=== PATIENT | male | born 2005 | race Caucasian/White ===

== ENCOUNTER 2024-06-24 08:23 | Emergency (ER) | payer OTHER, BC, SELFPAY ==
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
--- NOTE | 2024-06-24 08:35 | PC.NURSE ---
Pt. denies c-spine tenderness on palpation.
[2024-06-24 08:41] VITALS: BP 139/57; PULSE 56; RESP 16; TEMP 36.2; O2SAT 100
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
--- OUTSIDE RECORDS SUMMARY | 2024-06-24 10:13 | XMS_ITS | Referral Summary ---
Author Organization [facility] Address [address] [place] [id number] Care Team Providers Care Air Pollution Inspector Name Role Phone No, Physician Primary Care Provider [phone] Allergies No known active allergies Medications cyclobenzaprine (FLEXERIL) 10 mg tabletIndication s:Muscle Spasm Take 1 tablet (10 mg total) by mouth every 8 (eight) hours as needed for muscle spasms for up to 4 days 12 tablet 02/26/2023 Active Social History Tobacco Use Types Packs/Day Years Used Date Smoking Tobacco: Never Smokeless Tobacco: Never Alcohol Use Standard Drinks/Week Comments No 0 (1 standard drink = 0.6 oz pur e alcohol) Personal Safety Answer Date Recorded Getting School Help Needed Not on file 04/30 Sex and Gender Information Value Date Recorded Sex Assigned at Not on file 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 Gender Identity Not on file Sexual Orientation Not on file Last Filed Vital Signs Vital Sign Reading Time Taken Comments Blood Pressure 99/64 02/26/2023 12:00 AM CDT Pulse 57 02/26/2023 12:30 AM CDT Temperature 36.9 C (98.4 F) 02/25/2023 8:24 PM CDT Respiratory Rate 18 02/25/2023 9:04 PM CDT Oxygen Saturation 98% 02/26/2023 12:30 AM CDT Inhaled Oxygen Concentration - - Weight 86.2 kg (190 lb) 02/25/2023 5:53 PM CDT Height 167.6 cm (5' 6 ) 02/25/2023 5:53 PM CDT Body Mass Index 30.67 02/25/2023 5:53 PM CDT Body Mass Index Percentile 95.80% 02/25/2023 5:5 3 PM CDT Growth Chart: [facility] (Boys, 2-2 0 Years) Plan of Treatment Not on file Insurance [employer] Care Teams Air Pollution Inspector Relationship Specialty Start Date End Date No, Physician PCP - General 06/08/17
--- OUTSIDE RECORDS SUMMARY | 2024-06-24 10:13 | XMS_ITS | Patient Health Summary ---
Author Organization [facility] Address [address] [place] [address] Care Team Providers Care Dual Hose Cementer Name Role Phone Unavailable Primary Care Provider Unavailabl e Note from [facility],non-owned Affiliates and Associated Physician Practices is amultiple site organization consisting of ambulatory clinics and hospital sitesin [place], [place], [place] and [place]. This disclosure is being madepursuant to the Care Everywhere program and may not contain all information available regarding this patient. Last updated 18.[facility] Allergies No known active allergies Medications * Be aware that medications may not be up to date on this document. Alwaysverify current medications with the patient. * albuterol HFA (PROVENTIL;VENTOLIN;PROAIR) 108 (90 Base) MCG/ACT inhaler Inhale 2 puffs by mouth every 4 hours as needed for Shortness of Breath or Wheezing * acetaminophen (TYLENOL) 325 MG tablet(Started 04/02/2020) Take 2 tablets by mouth every 6 hours as needed Maximum allowable Acetaminophen amount = 4 Grams (4000 mg) / 24 hours. * ibuprofen (MOTRIN) 400 MG tablet(Started 04/02/2020) Take 1 tablet by mouth every 6 hours as needed for Pain Active Problems Problem Noted Date Diagnosed Date Tonsillar abscess 04/01/2020 Immunizations * INFLUENZA VACCINE, QUADR. (FLUZONE; FLULAVAL; FLUARIX; AFLURIA QUADRIVALENT; 6MO+), 0.5 ML (IIV4)(Given 04/02/2020) Social History Tobacco Use Types Packs/Day Years Used Date Smoking Tobacco: Never Smokeless Tobacco: Never Alcohol Use Standard Drinks/Week Comments Never 0 (1 standard drink = 0.6 oz pur e alcohol) AUDIT-C Answer Date Recorded Q1: How often do you have a drink containing alc ohol? Never 04/01/2020 Average Number of Drinks Not on file 020 Frequency of Binge Drinking Not on file 03/05 Sex and Gender Information Value Date Recorded Sex Assigned at Not on file Gender Identity Not on file Sexual Orientation Not on file Last Filed Vital Signs Vital Sign Reading Time Taken Comments Blood Pressure 138/66 04/02/2020 3:39 PM STORE ADMINISTRATOR Pulse 80 04/02/2020 3:39 PM STORE ADMINISTRATOR Temperature 37.6 C (99.7 F) 04/02/2020 3:39 PM STORE ADMINISTRATOR Respiratory Rate 20 04/02/2020 3:39 PM STORE ADMINISTRATOR Oxygen Saturation 96% 04/02/2020 3:39 PM STORE ADMINISTRATOR Inhaled Oxygen Concentration - - Weight 75.1 kg (165 lb 9.1 oz) 04/01/20 20 11:45 PM STORE ADMINISTRATOR Height 165.2 cm (5' 5.04 ) 04/01/2020 1 1:45 PM STORE ADMINISTRATOR Body Mass Index 27.52 04/01/2020 11:45 PM STORE ADMINISTRATOR Body Mass Index Percentile 95.19% 04/01 11:45 PM STORE ADMINISTRATOR Growth Chart: CDC (Boys, 2-2 0 Years) Procedures * RESPIRATORY PANEL WITH SARS-COV-2 BY PCR (STL)(Performed 04/02/2020) * DIFFERENTIAL MANUAL(Performed 04/02/2020) * CBC W AUTO DIFFERENTIAL(Performed 04/02/2020) * VI-CASPER VIRUS ANTIBODY PANEL(Performed 04/02/2020) Results * RESPIRATORY PANEL WITH SARS-COV-2 BY PCR (STL) (04/02/2020 9:53 AM STORE ADMINISTRATOR) Adenovirus PCR Not detected Not detected 04/02/2020 2:50 PM STORE ADMINISTRATOR [facility] Coronavirus 229E PCR Not detected Not detected 04/02/2020 2:50 PM STORE ADMINISTRATOR [facility] Coronavirus HKU1 PCR Not detected Not detected 04/02/2020 2:50 PM STORE ADMINISTRATOR [facility] Coronavirus NL63 PCR Not detected Not detected 04/02/2020 2:50 PM STORE ADMINISTRATOR [facility] Coronavirus OC43 PCR Not detected Not detected 04/02/2020 2:50 PM STORE ADMINISTRATOR [facility] COVID-19 PCR Not detected Not detected 04/02/2020 2:50 PM [facility] Human Metapneumovirus PCR Not detected Not detected 04/02/2020 2:50 PM [facility] Human Rhinovirus/Enterov irus PCR Not detected Not detected 04/02/2020 2:50 PM [facility] Influenza A PCR Not detected Not detected 04/02/2020 2:50 PM [facility] Influenza B PCR Not detected Not detected 04/02/2020 2:50 PM [facility] Parainfluenza Virus 1 PCR Not detected Not detected 04/02/2020 2:50 PM [facility] Parainfluenza Virus 2 PCR Not detected Not detected 04/02/2020 2:50 PM [facility] Parainfluenza Virus 3 PCR Not detected Not detected 04/02/2020 2:50 PM [facility] Parainfluenza Virus 4 PCR Not detected Not detected 04/02/2020 2:50 PM [facility] Respiratory Syncytial Virus PCR Not detected Not detected 04/02/2020 2:50 PM [facility] Bordetella parapertussis PCR Not detected Not detected 04/02/2020 2:50 PM [facility] Bordetella pertussis PCR Not detected Not detected 04/02/2020 2:50 PM [facility] Chlamydia pneumoniae PCR Not detected Not detected 04/02/2020 2:50 PM [facility] Mycoplasma pneumoniae PCR Not detected Not detected 04/02/2020 2:50 PM [facility] Microbiology SPECIMEN FROM NASOPHARYNGEAL STRUCTURE / Unknown Collection / Unknown 04/02/2020 9:53 AM STORE ADMINISTRATOR 04/02/2020 10:01 AM STORE ADMINISTRATOR [facility]CRO[facility] - 04/02/2020 2:50 PM STORE ADMINISTRATOR This nucleic acid amplification assay performance was validated by [facility]. This test has been authorized by the Food and Drug administration (FDA)under an Emergency Use Authorization (EUA). This test has been validated in accordance with the FDA's guidance document Policy for Diagnostic Testing in Laboratories Certified to perform High Complexity Testing under CLIA prior to Emergency Use Authorization for Coronavirus Disease-2019 during the Public Health Emergency issued on July 02, 2019. FDA independent review of this validation is pending. This test is only authorized for the duration of time the declaration that circumstances exist justifying the authorization of emergency use of in vitro diagnostic tests for detection of SARS-CoV-2 virus and/or diagnosis of COVID-19 infection under section 564(b)(1) of the Act, 21 U.S.C 360bbb-3 (b)(1), unless the authorization is terminated or revoked sooner. Fact Sheets for this EUA assay are available upon request. Liya Mejia MD LAB - MICROBIOLOG Y ORDERABLES [facility] [address] [place] [address], [facility] [phone] * (ABNORMAL) DIFFERENTIAL MANUAL (04/02/2020 9:22 AM STORE ADMINISTRATOR) WBC Auto 8.6 x10E9/L 04/02/2020 11:30 AM [facility] WBC Corrected 04/02/2020 11:30 AM [facility] nRBC 04/02/2020 11:30 AM [facility] Neutrophil % Manual 45 24 - 66 % 04/02/2020 11:30 AM [facility] Lymphocytes % Manual 14(L) 22 - 61 % 04/02/2020 11:30 AM [facility] Monocytes % Manual 4 3 - 15 % 04/02/2020 11:30 AM [facility] Eosinophils % Manual 2 0 - 10 % 04/02/2020 11:30 AM [facility] Atypical Lymphocyte % Manual 33(H) <=0 % 04/02/2020 11:30 AM [facility] Band % Manual 2 % 04/02/2020 11:30 AM [facility] Cells Counted 100 # cells 04/02/2020 11:30 AM [facility] Platelet Estimation Adequate platelets Normal, Adequate platelets 04/02/2020 11:30 AM [facility] WBC Morph Normal 04/02/2020 11:30 AM [facility] Anisocytosis 1+(A) None 04/02/2020 11:30 AM [facility] Poikilocytosis 1+(A) None 04/02/2020 11:30 AM [facility] Blood BLOOD SPECIMEN / Unknown Lab Venipuncture / Unknown 04/02/2020 9:22 AM STORE ADMINISTRATOR 04/02/2020 9:26 AM STORE ADMINISTRATOR Liya Mejia MD LAB - HEMATOLOGY ORDERABLES [facility] [address] [place] [address] * (ABNORMAL) CBC W AUTO DIFFERENTIAL (04/02/2020 9:22 AM STORE ADMINISTRATOR) [facility] WBC 8.6 4.5 - 14.5 x10E9/L 04/02/2020 9:40 AM [facility] WBC Corrected 04/02/2020 9:40 AM [facility] RBC 4.62 4.50 - 5.30 x10E12/L 04/02/2020 9:40 AM [facility] Hemoglobin 13.4 13.0 - 16.0 gm/dL 04/02/2020 9:40 AM [facility] Hematocrit 38.5 37.0 - 49.0 % 04/02/2020 9:40 AM [facility] MCV 83.3 78.0 - 98.0 fl 04/02/2020 9:40 AM [facility] MCH 29.0 25.0 - 35.0 pg 04/02/2020 9:40 AM [facility] MCHC 34.8 31.0 - 37.0 gm/dL 04/02/2020 9:40 AM [facility] Platelet Count 189 100 - 400 x10E9/L 04/02/2020 9:40 AM [facility] RDW-CV 11.6 11.5 - 14.0 % 04/02/2020 9:40 AM [facility] MPV 10.5(H) 6.0 - 9.5 fl 04/02/2020 9:40 AM [facility] nRBC Auto 0 /100 WBC 04/02/2020 9:40 AM [facility] Blood BLOOD SPECIMEN / Unknown Lab Venipuncture / Unknown 04/02/2020 9:22 AM STORE ADMINISTRATOR 04/02/2020 9:26 AM STORE ADMINISTRATOR Liya Mejia MD LAB - HEMATOLOGY ORDERABLES [facility] [place] [address] * (ABNORMAL) VI-CASPER VIRUS ANTIBODY PANEL (04/02/2020 9:21 AM STORE ADMINISTRATOR) Vi-Casper Viral Capsid Antigen Antibody IgM >160.0(H) 0.0 - 35.9 U/mL 04/03/2020 6:07 PM STORE ADMINISTRATOR [facility] Comment: Negative <36.0 Equivocal 36.0 - 43.9 Positive >43.9 Vi-Casper Viral Capsid Antigen Antibody IgG 64.4(H) 0.0 - 17.9 U/mL 04/03/2020 6:07 PM STORE ADMINISTRATOR [facility] Comment: Negative <18.0 Equivocal 18.0 - 21.9 Positive >21.9 Vi-Casper Virus Antibody IgG Nuclear Antigen <18.0 0.0 - 17.9 U/mL 04/03/2020 6:07 PM STORE ADMINISTRATOR [facility] Comment: Negative <18.0 Equivocal 18.0 - 21.9 Positive >21.9 Interpretation Vi Casper Virus Comment 04/03/2020 6:07 PM STORE ADMINISTRATOR [facility]) Comment: EBV Interpretation Chart Carey: Antibody Present + Antibody Absent - Interpretation VCA-IgM VCA-IgG EBNA-IgG No previous infection/ - - - Susceptible Primary infection (new + + - or recent) Past Infection +or- + + See comment below* + - - *Results indicate infection with EBV at some time however cannot predict the timing of the infection since antibodies to EBNA usually develop after primary infection or, alternatively, approximately 5-10% of patients with EBV never develop antibodies to EBNA. Blood BLOOD SPECIMEN / Unknown Lab Venipuncture / Unknown 04/02/2020 9:21 AM STORE ADMINISTRATOR 04/02/2020 9:26 AM STORE ADMINISTRATOR Narrative [facility]) - 04/03/2020 6:07 PM STORE ADMINISTRATOR Performed at: [address] [place] [id number] Infantryman: Geraldo Snowden PhD, Phone: [phone] Liya Mejia MD LAB - CHEMISTRY O RDERABLES [facility]) [address] [place] [address]
--- OUTSIDE RECORDS SUMMARY | 2024-06-24 10:13 | XMS_ITS | Clinical Summary ---
Author Organization [facility] Address [address] [place] [address] Care Team Providers Care Director Of Accounts Receivable Name Role Phone Unavailable Primary Care Provider Unavailabl e Source Comments [facility],non-owned Affiliates and Associated Physician Practices is amultiple site organization consisting of ambulatory clinics and hospital sitesin [place], [place], [place] and [place]. This disclosure is being madepursuant to the Care Everywhere program and may not contain all information available regarding this patient. Last updated 18.[facility] Allergies No known active allergies Medications * Be aware that medications may not be up to date on this document. Alwaysverify current medications with the patient. Medication Sig Dispensed Refills Start Date End Date Status albuterol HFA (PROVENTIL;VENTOLIN ;PROAIR) 108 (90 Base) MCG/ACT inhaler Inhale 2 puffs by mouth every 4 hours as needed for Shortness of Breath or Wheezing Active acetaminophen (TYLENOL) 325 MG tablet Take 2 tablets by mouth every 6 hours as needed Maximum allowable Acetaminophen amount = 4 Grams (4000 mg) / 24 hours. 04/02/2020 Active ibuprofen (MOTRIN) 400 MG tablet Take 1 tablet by mouth every 6 hours as needed for Pain 04/02/2020 Active Active Problems Problem Noted Date Diagnosed Date Tonsillar abscess 04/01/2020 Assessment & Plan (04/02/2020 4:07 PM NATURAL RESOURCES INSTRUCTOR): Assessment: 14 year old boy with no PMH bilateral intratonsillar abscess as seen on CT neck likely secondary to bacterial vs viral infection. Rolan reports otalgia and odynophagia. Given his increased atypical lymphocytes, this is likely a viral infection (EBV vs CMV). Per ENT, there is no need for surgical intervention at this time. Since admission, Rolan has had increased blood pressures with SBP between 132-156, possible secondary to pain though his heart rate has remained within normal limits. Since PO improved, Rolan can be transitioned off of IV fluids. He is stable for discharge at this time. Plan: - Motrin and Tylenol PRN pain - Dexamethasone given, should cover Rolan for 3 days - Flu shot given - F/u EBV results - F/u with PCP outpatient - No contact sports - Regular diet Assessment & Plan (04/02/2020 1:34 AM NATURAL RESOURCES INSTRUCTOR): Assessment: Rolan Orta is a 14 year old male with no past medical history who is being admitted for bilateral intratonsillar abscesses. He has been having sore throat, rhinorrhea, and otalgia for approximately one week. He had dental work done on 03/26 and symptoms began prior to this but appeared to have worsen after. He went to an OSH in [place] where CT neck w/ contrast showed bilateral intratonsillar abscess, read and reviewed by Radiology and ENT at . No need for surgical intervention at this time per ENT. He was transferred to for further management and in the ED at he was started on Unasyn and given fentanyl for pain. Dental work could have been a nidus for infection. Plan: - Admit to general medicine, Dr. Grayson - Vitals Q8, strict I&Os - D5 NS w/ 20 KCl @ 115 mL/hr - Unasyn 2 g Q6 - Toradol 30 mg Q6 PRN - Tylenol Q6 PRN - CT outside consultation - Regular diet Immunizations Name Administration Dates Next Due INFLUENZA VACCINE, QUADR. (F LUZONE; FLULAVAL; FLUARIX; AFLURIA QUADRIVALENT; 6MO+), 0.5 ML (IIV4) 04/02/2020 Social History Tobacco Use Types Packs/Day Years [...] Comments Blood Pressure 138/66 04/02/2020 3:39 PM NATURAL RESOURCES INSTRUCTOR Pulse 80 04/02/2020 3:39 PM NATURAL RESOURCES INSTRUCTOR Temperature 37.6 C (99.7 F) 04/02/2020 3:39 PM NATURAL RESOURCES INSTRUCTOR Respiratory Rate 20 04/02/2020 3:39 PM NATURAL RESOURCES INSTRUCTOR Oxygen Saturation 96% 04/02/2020 3:39 PM NATURAL RESOURCES INSTRUCTOR Inhaled Oxygen Concentration - - Weight 75.1 kg (165 lb 9.1 oz) 04/01/20 20 11:45 PM NATURAL RESOURCES INSTRUCTOR Height 165.2 cm (5' 5.04 ) 04/01/2020 1 1:45 PM NATURAL RESOURCES INSTRUCTOR Body Mass Index 27.52 04/01/2020 11:45 PM NATURAL RESOURCES INSTRUCTOR Body Mass Index Percentile 95.19% 04/01 11:45 PM NATURAL RESOURCES INSTRUCTOR Growth Chart: CDC (Boys, 2-2 0 Years) Plan of Treatment Health Maintenance Due Date Last Done Comments HIV SCREENING 09/05/2019 HPV VACCINE (1 - Male 3-dose series) 09/05/2019 MENINGOCOCCAL (Group B) VACC INE (1 of 2 - Standard) 2020 HEPATITIS C SCREENING 08/31/2022 DTAP/TDAP/TD VACCINES (1 - Tdap) 09/05/2023 HEPATITIS B VACCINE (1 of 3 - 19+ 3-dose series) 09/05/2023 COVID-19 VACCINE (1 - 2023-2 5 season) 2024 INFLUENZA VACCINE (#1) 2024 04/02/2020 DEPRESSION SCREENING 05/04/2024 ZOSTER VACCINE (1 of 2) 2054 HIB VACCINE Aged Out No longer eligi ble based on patient's age to complete this topic MENINGOCOCCAL VACCINE Aged Out No cortes juan jose eligible based on patient's age to complete this topic PNEUMOCOCCAL VACCINE Aged Out No long er eligible based on patient's age to complete this topic Advance Directives * Full Code (Latest Code Status on File) Date Activated Date Inactivated Comments 04/02/2020 12:15 AM 04/02/2020 5:56 PM
--- OUTSIDE RECORDS SUMMARY | 2024-06-24 10:13 | XMS_ITS | Clinical Summary ---
Author Organization [facility] Address [address] [place] [id number] Care Team Providers Care Supervisor [employer] Name Role Phone No, Physician Primary Care Provider [phone] Allergies No known active allergies Medications cyclobenzaprine (FLEXERIL) 10 mg tabletIndication s:Muscle Spasm Take 1 tablet (10 mg total) by mouth every 8 (eight) hours as needed for muscle spasms for up to 4 days 12 tablet 02/26/2023 Active Family History Medical History Relation Name Comments Arthritis Neg Hx Cancer Neg Hx Diabetes Neg Hx Social History Tobacco Use Types Packs/Day Years Used Date Smoking Tobacco: Never Smokeless Tobacco: Never Alcohol Use Standard Drinks/Week Comments No 0 (1 standard drink = 0.6 oz pur e alcohol) Personal Safety Answer Date Recorded Getting School Help Needed Not on file 04/30 Sex and Gender Information Value Date Recorded Sex Assigned at Not on file 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 Gender Identity Not on file Sexual Orientation Not on file Obstetrics History Growth Chart Information Age Height Weight Nopakk-vlh-[id number] th Percentile BMI Percentile Head Circum Head Circum Percentile Date 17 years 167.6 cm (5' 6 ) 86.2 kg (190 lb) 95.80%* 2022 11 years 161.3 cm (5' 3.5 ) 71.5 kg (157 lb 9.6 oz) 96.79%* 2017 * [facility] (Boys, 2-20 Years) Last Filed Vital Signs Vital Sign Reading [...] 02/25/2023 5:5 3 PM CDT Growth Chart: CDC (Boys, 2-2 0 Years) Plan of Treatment Health Maintenance Due Date Last Done Comments Depression Screening 2004 Hepatitis C Screening 2004 Meningococcal B Vaccine (2 of 2 - Bexsero SCDM 2-dose series) 06/21/2022 12/19/2021 Regular Well Visit/Exam 18-64 2022 Influenza Vaccine (#1) 2024 04/02/2020 DTaP/Tdap/Td Vaccine (6 - Td or Tdap) 01/31/2025 01/31/2015, 01/03/2006, 03/14/2005, Additional history exists Hepatitis B Screening Completed 03/14/2005 , 2004, 2004 Pneumococcal vaccine <65 Aged Out 005, 01/07/2005, 2004 No longer eligible based on patient's age to complete this topic Varicella Vaccines Completed 10/22/2009, 09/08/2005 HPV Vaccines Completed 12/13/2018, 12/03/2017 Meningococcal Vaccine Completed 12/19/2021, 016 Insurance [employer] ACCESS CHOICE [facility] [employer] [place] Care Teams Supervisor [employer] Relationship Specialty Start Date End Date No, Physician PCP - General 06/08/17
--- OUTSIDE RECORDS SUMMARY | 2024-06-24 10:13 | XMS_ITS | Referral Summary ---
Author Organization [facility] [employer] Address [address] [place] [address] Care Team Providers Care Template Fitter Name Role Phone Unavailable Primary Care Provider Unavailabl e Source Comments [facility] [employer],non-owned Affiliates and Associated Physician Practices is amultiple site organization consisting of ambulatory clinics and hospital sitesin [place], [place], [place] and [place]. This disclosure is being madepursuant to the Care Everywhere program and may not contain all information available regarding this patient. Last updated 18.[facility] [employer] Allergies No known active allergies Medications * [...] 04/01/2020 Assessment & Plan (04/02/2020 4:07 PM ELECTRIC KNIFE OPERATOR): Assessment: 14 year old boy with no [...] diet Assessment & Plan (04/02/2020 1:34 AM ELECTRIC KNIFE OPERATOR): Assessment: Rolan Orta is a 14 year old male with no past medical history who is being admitted for bilateral intratonsillar abscesses. He has been having sore throat, rhinorrhea, and otalgia for approximately one week. He had dental work done on 03/26 and symptoms began prior to this but appeared to have worsen after. He went to an OSH in [place] where CT neck w/ contrast showed bilateral [...] Comments Blood Pressure 138/66 04/02/2020 3:39 PM ELECTRIC KNIFE OPERATOR Pulse 80 04/02/2020 3:39 PM ELECTRIC KNIFE OPERATOR Temperature 37.6 C (99.7 F) 04/02/2020 3:39 PM ELECTRIC KNIFE OPERATOR Respiratory Rate 20 04/02/2020 3:39 PM ELECTRIC KNIFE OPERATOR Oxygen Saturation 96% 04/02/2020 3:39 PM ELECTRIC KNIFE OPERATOR Inhaled Oxygen Concentration - - Weight 75.1 kg (165 lb 9.1 oz) 04/01/20 20 11:45 PM ELECTRIC KNIFE OPERATOR Height 165.2 cm (5' 5.04 ) 04/01/2020 1 1:45 PM ELECTRIC KNIFE OPERATOR Body Mass Index 27.52 04/01/2020 11:45 PM ELECTRIC KNIFE OPERATOR Body Mass Index Percentile 95.19% 04/01 11:45 PM ELECTRIC KNIFE OPERATOR Growth Chart: [facility] (Boys, 2-2 0 Years) Functional Status Functional Status Response Date of Assess ment Is person deaf or have serious hearing difficult y? No 04/01/2020 Is person blind or have serious difficulty seein g? No 04/01/2020 Does person have serious dif ficulty walking/climbing stairs? No 04/01/2020 Does person have difficulty dressing/bathing? No 04/01/2020 Does person have difficulty doing errands alone? No 04/01/2020 Cognitive Status Response Date of Assessm ent Does person have difficulty concentrating/remembering/making decisions? No 04/01/2020 Plan of Treatment Not on file Advance Directives * Full Code (Latest Code Status on File) Date Activated Date Inactivated Comments 04/02/2020 12:15 AM 04/02/2020 5:56 PM
[2024-06-24] MEDS: ACETAMINOPHEN 500 MG TABLET 1000 MG PO (10:46)
[2024-06-24] MEDS: CYCLOBENZAPRINE HCL 5 MG TABLET PO (10:46)
--- NOTE | 2024-06-24 11:57 | PC.NURSE ---
Found patient id and insurance card in the room after discharge. called patient at [phone] and let him know that it would be available to be picked up with the intake/triage nurses.
== END 2024-06-24 11:16 | disposition home or self-care (01) ==
PROVIDERS: Emergency Provider Physician Assistant; PCP Pediatrics
DX: S39.012A Strain of muscle, fascia and tendon of lower back, initial encounter (principal); V49.40XA Driver injured in collision with unspecified motor vehicles in traffic accident, initial encounter
CPT/HCPCS: 70450; 72050; 72072; 72110; 96372; 99284; A9270